=== PATIENT | female | born 2000 | race Caucasian/White ===

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

== ENCOUNTER 2019-02-01 17:03 | Emergency (ER) | payer OTHER ==
[~2019-02-01] VITALS: Ht 154.9 cm; Wt 71.2 kg
[~2019-02-01 17:03] MED LIST changes: +MACROBID100 M1 PO
[2019-02-01] MEDS ORDERED: BENADRYL25 M2 PO (17:27)
== END 2019-02-01 17:45 | disposition home or self-care (01) ==
LOC: ED 17:03
DX: S20.469A Insect bite (nonvenomous) of unspecified back wall of thorax, initial encounter (principal); S40.862A Insect bite (nonvenomous) of left upper arm, initial encounter; W57.XXXA Bitten or stung by nonvenomous insect and other nonvenomous arthropods, initial encounter; Y93.89 Activity, other specified; Y92.89 Other specified places as the place of occurrence of the external cause; Y99.8 Other external cause status

== ENCOUNTER 2019-03-08 19:58 | Emergency (ER) | payer OTHER ==
[~2019-03-08] VITALS: Ht 154.9 cm; Wt 68.0 kg
[~2019-03-08 19:58] MED LIST changes: +BENADRYL25 M2 PO
[2019-03-08] MEDS ORDERED: AMOXICILLIN500 M2 PO (20:28)
[2019-03-08] MEDS ORDERED: PRILOSEC20 M1 PO (20:28)
[2019-03-08] MEDS ORDERED: FLONASE ALLERG9.9 ML NAS (20:28)
[2019-03-08] MEDS ORDERED: Motrin,Rufen800 MG PO (20:28)
== END 2019-03-08 20:34 | disposition home or self-care (01) ==
LOC: ED 19:58
DX: J01.00 Acute maxillary sinusitis, unspecified (principal); H65.01 Acute serous otitis media, right ear; Z87.19 Personal history of other diseases of the digestive system

== ENCOUNTER 2019-03-18 18:38 | Emergency (ER) | payer OTHER ==
[~2019-03-18] VITALS: Ht 154.9 cm; Wt 68.0 kg
[~2019-03-18 18:38] MED LIST changes: +AMOXICILLIN500 M2 PO; +FLONASE ALLERG9.9 ML NAS; +Motrin,Rufen800 MG PO; +PRILOSEC20 M1 PO
[2019-03-18 19:07] LABS: BILIRUBIN NEGATIVE (NEGATIVE); BLOOD NEGATIVE (NEGATIVE); CLARITY CLOUDY (CLEAR); COLOR YELLOW (YELLOW); GLUCOSE NEGATIVE (NEGATIVE); KETONE NEGATIVE (NEGATIVE); LEUKO ESTERASE 3+ (NEGATIVE); NITRITE NEGATIVE (NEGATIVE); SPECIFIC GRAVITY 1.015 (1.005-1.030)
[2019-03-18 19:30] LABS: BACTERIA 1+; WBC 16-20 wbc/hpf (0-5)
[2019-03-18] MEDS ORDERED: DOXYCYCLINE100 M3 PO (19:45)
== END 2019-03-18 20:22 | disposition home or self-care (01) ==
LOC: ED 18:38
PROVIDERS: Physician Assistant
DX: N39.0 Urinary tract infection, site not specified (principal); Z20.2 Contact with and (suspected) exposure to infections with a predominantly sexual mode of transmission; Z79.899 Other long term (current) drug therapy; Z79.2 Long term (current) use of antibiotics

== ENCOUNTER 2019-04-13 16:38 | Emergency (ER) | payer OTHER ==
[~2019-04-13] VITALS: Wt 71.8 kg
[~2019-04-13 16:38] MED LIST changes: +DOXYCYCLINE100 M3 PO
[2019-04-13] MEDS ORDERED: TOBREX OPHTH O3.5 GM T (17:03)
[2019-04-13] MEDS ORDERED: CEPHALEXIN500 M1 PO (17:03)
== END 2019-04-13 17:13 | disposition home or self-care (01) ==
LOC: ED 16:38
DX: H00.11 Chalazion right upper eyelid (principal)

== ENCOUNTER 2019-05-01 18:41 | Emergency (ER) | payer OTHER ==
[~2019-05-01] VITALS: Ht 154.9 cm; Wt 71.7 kg
[~2019-05-01 18:41] MED LIST changes: +CEPHALEXIN500 M1 PO; +TOBREX OPHTH O3.5 GM T
[2019-05-01 19:56] LABS: BASO # 0.1 10*3/uL (0.0-0.1); BASO % 0.6 % (0.0-1.0); EOS % 0.4 % (1.0-4.0); HEMATOCRIT 40.8 % (37.0-47.0); HEMOGLOBIN 12.9 g/dl (12.0-16.0); LYMPH # 3.2 10*3/uL (1.3-4.4); LYMPH % 35.9 % (27.0-41.0); MEAN CELL VOLUME 93.8 fl (81.0-99.0); MEAN CORPUSCULAR HGB 29.7 pg (27.0-31.0); MEAN CORPUSCULAR HGB CONC 31.6 g/dl (33.0-37.0); MEAN PLATELET VOLUME 10.3 fl (9.6-12.3); MONO # 0.6 10*3/uL (0.1-1.0); MONO % 6.6 % (3.0-9.0); NEUT % 56.2 % (47.0-73.0); PLATELET COUNT AUTOMATED 275 10*3/uL (130-400); RED BLOOD COUNT 4.35 10*6/uL (4.10-5.10); RED CELL DISTRI WIDTH 11.8 % (0-14.5)
[2019-05-01 20:11] LABS: ALKALINE PHOSPHATASE 100 U/L (45-117); BUN 9 mg/dl (7-24); CHLORIDE 109 mmol/L (98-107); CREATININE 0.78 mg/dL (0.55-1.02); POTASSIUM 3.7 mmol/L (3.5-5.1); SGOT/AST 14 IU/L (3-35); SGPT/ALT 17 U/L (12-78); SODIUM 141 mmol/L (136-145); TOTAL PROTEIN 7.8 gm/dL (6.4-8.2)
[2019-05-01] MEDS ORDERED: AMOXICILLIN500 M2 PO (23:02)
== END 2019-05-01 23:46 | disposition home or self-care (01) ==
LOC: ED 18:41
PROVIDERS: Nurse Practitioner Family
DX: H66.92 Otitis media, unspecified, left ear (principal)

== ENCOUNTER 2019-05-28 15:17 | Emergency (ER) | payer OTHER ==
[~2019-05-28] VITALS: Ht 154.9 cm; Wt 68.0 kg
[2019-05-28 17:56] LABS: BILIRUBIN NEGATIVE (NEGATIVE); BLOOD NEGATIVE (NEGATIVE); CLARITY CLOUDY (CLEAR); COLOR YELLOW (YELLOW); GLUCOSE NEGATIVE (NEGATIVE); KETONE NEGATIVE (NEGATIVE); LEUKO ESTERASE NEGATIVE (NEGATIVE); NITRITE NEGATIVE (NEGATIVE); SPECIFIC GRAVITY 1.025 (1.005-1.030); UROBILINOGEN 0.2 E.U./dl (0.2-1.0)
[2019-05-28 18:31] LABS: EPITHELIAL CELLS 21-30
[2019-05-28] MEDS ORDERED: ZYRTEC10 MG PO (18:57)
[2019-05-28] MEDS ORDERED: AMOXICILLIN500 M2 PO (18:57)
== END 2019-05-28 19:17 | disposition home or self-care (01) ==
LOC: ED 15:17
PROVIDERS: Physician Assistant
DX: H66.91 Otitis media, unspecified, right ear (principal); H92.02 Otalgia, left ear; R42 Dizziness and giddiness

== ENCOUNTER 2019-06-02 23:06 | Emergency (ER) | payer OTHER ==
[~2019-06-02] VITALS: Ht 154.9 cm; Wt 68.0 kg
[~2019-06-02 23:06] MED LIST changes: +ZYRTEC10 MG PO
== END 2019-06-03 01:28 | disposition home or self-care (01) ==
LOC: ED 23:06
DX: S05.02XA Injury of conjunctiva and corneal abrasion without foreign body, left eye, initial encounter (principal); H16.133 Photokeratitis, bilateral; Z79.899 Other long term (current) drug therapy; Z79.2 Long term (current) use of antibiotics; X32.XXXA Exposure to sunlight, initial encounter; X58.XXXA Exposure to other specified factors, initial encounter; Y93.89 Activity, other specified; Y92.89 Other specified places as the place of occurrence of the external cause; Y99.8 Other external cause status

== ENCOUNTER 2019-06-19 15:06 | Emergency (ER) | payer OTHER ==
[~2019-06-19] VITALS: Ht 154.9 cm; Wt 68.0 kg
[2019-06-19 15:52] LABS: BASO % 0.4 % (0.0-1.0); EOS % 0.2 % (1.0-4.0); HEMATOCRIT 39.6 % (37.0-47.0); HEMOGLOBIN 12.7 g/dl (12.0-16.0); MEAN CELL VOLUME 92.3 fl (81.0-99.0); MEAN CORPUSCULAR HGB 29.6 pg (27.0-31.0); MEAN CORPUSCULAR HGB CONC 32.1 g/dl (33.0-37.0); MONO # 0.7 10*3/uL (0.1-1.0); MONO % 6.4 % (3.0-9.0); NEUT # 7.4 10*3/uL (2.3-7.9); NEUT % 72.7 % (47.0-73.0); PLATELET COUNT AUTOMATED 243 10*3/uL (130-400); RED BLOOD COUNT 4.29 10*6/uL (4.10-5.10); WHITE BLOOD COUNT 10.2 10*3/uL (4.8-10.8)
[2019-06-19 16:04] LABS: COLOR YELLOW (YELLOW)
[2019-06-19 16:05] LABS: BILIRUBIN NEGATIVE (NEGATIVE); BLOOD TRACE-INTACT (NEGATIVE); CLARITY SL CLOUDY (CLEAR); GLUCOSE NEGATIVE (NEGATIVE); KETONE NEGATIVE (NEGATIVE); LEUKO ESTERASE TRACE (NEGATIVE); NITRITE NEGATIVE (NEGATIVE); UROBILINOGEN 0.2 E.U./dl (0.2-1.0)
[2019-06-19 16:13] LABS: BACTERIA 4+; EPITHELIAL CELLS 30-40; WBC 21-30 wbc/hpf (0-5)
[2019-06-19 16:15] LABS: ALKALINE PHOSPHATASE 85 U/L (45-117); BUN 6 mg/dl (7-24); CREATININE 0.72 mg/dL (0.55-1.02); SGOT/AST 9 IU/L (3-35); SGPT/ALT 21 U/L (12-78); TOTAL PROTEIN 7.5 gm/dL (6.4-8.2)
[2019-06-19 16:42] LABS: CHLORIDE 108 mmol/L (98-107); POTASSIUM 3.8 mmol/L (3.5-5.1); SODIUM 138 mmol/L (136-145)
[2019-06-19] MEDS ORDERED: AMINOPHYLLIN200 MG PO (17:23)
[2019-06-19] MEDS ORDERED: PRENATAL ONE D1 EACH PO (17:23)
== END 2019-06-19 17:30 | disposition home or self-care (01) ==
LOC: ED 15:06
PROVIDERS: Physician Assistant
DX: O23.41 Unspecified infection of urinary tract in pregnancy, first trimester (principal); Z3A.12 12 weeks gestation of pregnancy; Z79.2 Long term (current) use of antibiotics; Z79.899 Other long term (current) drug therapy

== ENCOUNTER 2019-06-25 19:14 | Emergency (ER) | payer OTHER ==
[~2019-06-25] VITALS: Wt 73.5 kg
[~2019-06-25 19:14] MED LIST changes: +AMINOPHYLLIN200 MG PO; +PRENATAL ONE D1 EACH PO
[2019-06-25 20:40] LABS: BASO # 0.1 10*3/uL (0.0-0.1); BASO % 0.4 % (0.0-1.0); EOS # 0.1 10*3/uL (0.0-0.4); EOS % 0.4 % (1.0-4.0); HEMATOCRIT 37.2 % (37.0-47.0); HEMOGLOBIN 11.9 g/dl (12.0-16.0); LYMPH # 2.6 10*3/uL (1.3-4.4); LYMPH % 20.2 % (27.0-41.0); MEAN CELL VOLUME 92.8 fl (81.0-99.0); MEAN CORPUSCULAR HGB 29.7 pg (27.0-31.0); MONO # 0.9 10*3/uL (0.1-1.0); MONO % 6.7 % (3.0-9.0); NEUT # 9.2 10*3/uL (2.3-7.9); NEUT % 72.1 % (47.0-73.0); PLATELET COUNT AUTOMATED 228 10*3/uL (130-400); RED BLOOD COUNT 4.01 10*6/uL (4.10-5.10); WHITE BLOOD COUNT 12.8 10*3/uL (4.8-10.8)
[2019-06-25 20:57] LABS: ALBUMIN 3.4 gm/dl (3.1-4.5); ALKALINE PHOSPHATASE 82 U/L (45-117); BUN 10 mg/dl (7-24); CHLORIDE 108 mmol/L (98-107); CREATININE 0.67 mg/dL (0.55-1.02); LIPASE 75 U/L (73-393); POTASSIUM 3.8 mmol/L (3.5-5.1); SGOT/AST 7 IU/L (3-35); SGPT/ALT 16 U/L (12-78); SODIUM 140 mmol/L (136-145); TOTAL PROTEIN 7.1 gm/dL (6.4-8.2)
[2019-06-25 21:35] LABS: BILIRUBIN NEGATIVE (NEGATIVE); BLOOD NEGATIVE (NEGATIVE); CLARITY CLOUDY (CLEAR); COLOR YELLOW (YELLOW); GLUCOSE NEGATIVE (NEGATIVE); KETONE NEGATIVE (NEGATIVE); LEUKO ESTERASE 1+ (NEGATIVE); NITRITE NEGATIVE (NEGATIVE); UROBILINOGEN 0.2 E.U./dl (0.2-1.0)
[2019-06-25 21:41] LABS: BACTERIA 4+; RBC 0-2 rbc/hpf (0-2)
[2019-06-25] MEDS ORDERED: CEPHALEXIN500 M1 PO (21:49)
== END 2019-06-25 22:01 | disposition home or self-care (01) ==
LOC: ED 19:14
PROVIDERS: Physician Assistant
DX: O23.41 Unspecified infection of urinary tract in pregnancy, first trimester (principal); Z3A.01 Less than 8 weeks gestation of pregnancy; Z79.2 Long term (current) use of antibiotics; Z79.899 Other long term (current) drug therapy

== ENCOUNTER 2019-07-09 14:53 | Emergency (ER) | payer OTHER ==
[~2019-07-09] VITALS: Ht 157.4 cm; Wt 72.6 kg
[2019-07-09] MEDS ORDERED: CEPHALEXIN500 M1 PO (15:53)
== END 2019-07-09 15:48 | disposition home or self-care (01) ==
LOC: ED 14:53
DX: O99.711 Diseases of the skin and subcutaneous tissue complicating pregnancy, first trimester (principal); H02.841 Edema of right upper eyelid; Z3A.09 9 weeks gestation of pregnancy; Z79.2 Long term (current) use of antibiotics; Z79.899 Other long term (current) drug therapy

== ENCOUNTER → 2019-09-13 | Outpatient (CLI) | payer OTHER | LOC: US 09:40 | DX: Z34.02 Encounter for supervision of normal first pregnancy, second trimester (principal); Z3A.18 18 weeks gestation of pregnancy ==

== ENCOUNTER 2019-10-29 02:20 | Emergency (ER) | payer OTHER ==
[~2019-10-29] VITALS: Ht 154.9 cm; Wt 65.8 kg
== END 2019-10-29 03:24 | disposition home or self-care (01) ==
LOC: ED 02:20
DX: S00.83XA Contusion of other part of head, initial encounter (principal); W22.8XXA Striking against or struck by other objects, initial encounter; Y93.89 Activity, other specified; Y92.89 Other specified places as the place of occurrence of the external cause; Y99.8 Other external cause status

== ENCOUNTER → 2019-11-14 | Outpatient (CLI) | payer OTHER | END | disposition home or self-care (01) | LOC: US 13:00 | DX: Z34.82 Encounter for supervision of other normal pregnancy, second trimester (principal); Z3A.27 27 weeks gestation of pregnancy ==

== ENCOUNTER 2019-12-12 16:13 | Emergency (ER) | payer OTHER ==
[~2019-12-12] VITALS: Ht 154.9 cm; Wt 84.8 kg
== END 2019-12-12 17:45 | disposition short-term general hospital (02) ==
LOC: ED 16:13
DX: O16.3 Unspecified maternal hypertension, third trimester (principal); Z3A.31 31 weeks gestation of pregnancy

== ENCOUNTER 2019-12-25 20:45 | Emergency (ER) | payer OTHER ==
[2019-12-25] MEDS ORDERED: AMOXICILLIN500 M2 PO (21:25)
== END 2019-12-25 21:35 | disposition home or self-care (01) ==
LOC: ED 20:45
DX: O99.513 Diseases of the respiratory system complicating pregnancy, third trimester (principal); O26.893 Other specified pregnancy related conditions, third trimester; J06.9 Acute upper respiratory infection, unspecified; F41.9 Anxiety disorder, unspecified; F32.9 Major depressive disorder, single episode, unspecified; Z3A.33 33 weeks gestation of pregnancy; Z79.899 Other long term (current) drug therapy

== ENCOUNTER 2019-12-28 21:32 | Emergency (ER) | payer OTHER ==
[~2019-12-28] VITALS: Ht 154.9 cm; Wt 85.7 kg
== END 2019-12-28 22:40 | disposition home or self-care (01) ==
LOC: ED 21:32
DX: O47.03 False labor before 37 completed weeks of gestation, third trimester (principal); I10 Essential (primary) hypertension; Z3A.34 34 weeks gestation of pregnancy

== ENCOUNTER → 2019-12-28 | Outpatient (CLI) | payer OTHER | END | disposition home or self-care (01) | LOC: US 11:30 | DX: Z34.02 Encounter for supervision of normal first pregnancy, second trimester (principal); Z3A.33 33 weeks gestation of pregnancy ==

== ENCOUNTER → 2019-12-31 | Outpatient (CLI) | payer OTHER | END | disposition home or self-care (01) | LOC: US 13:30 | DX: Z34.03 Encounter for supervision of normal first pregnancy, third trimester (principal); Z3A.33 33 weeks gestation of pregnancy ==

== ENCOUNTER → 2020-01-17 | Outpatient (CLI) | payer OTHER | END | disposition home or self-care (01) | LOC: US 15:30 | PROVIDERS: ATTEND Family Medicine | DX: Z34.83 Encounter for supervision of other normal pregnancy, third trimester (principal); Z3A.36 36 weeks gestation of pregnancy ==

== ENCOUNTER → 2020-01-25 | Outpatient (CLI) | payer OTHER | END | disposition home or self-care (01) | LOC: US 14:09 | PROVIDERS: ATTEND Obstetrics & Gynecology | DX: Z34.03 Encounter for supervision of normal first pregnancy, third trimester (principal); Z3A.37 37 weeks gestation of pregnancy ==

== ENCOUNTER 2020-01-27 21:20 | Emergency (ER) | payer OTHER | END 2020-01-27 21:25 | disposition left against medical advice (07) | LOC: ED 21:20 | DX: S30.826A Blister (nonthermal) of unspecified external genital organs, female, initial encounter (principal); Z53.21 Procedure and treatment not carried out due to patient leaving prior to being seen by health care provider; X58.XXXA Exposure to other specified factors, initial encounter; Y93.89 Activity, other specified; Y92.89 Other specified places as the place of occurrence of the external cause; Y99.8 Other external cause status ==

== ENCOUNTER → 2020-01-30 | Outpatient (CLI) | payer OTHER | END | disposition home or self-care (01) | LOC: US 15:30 | PROVIDERS: ATTEND Nurse Practitioner Women's Health | DX: O28.8 Other abnormal findings on antenatal screening of mother (principal); Z3A.38 38 weeks gestation of pregnancy ==